=== PATIENT | female | born 1935 | race Caucasian/White ===

== ENCOUNTER 2016-11-06 05:57 | Day surgery (SDC) | payer MEDICARE, OTHER ==
[~2016-11-06 05:57] MED LIST: CEFAZOLIN SODIUM 1 GM in NORMAL SALINE MINI-BAG+ 100 ML IV ONE
[2016-11-06 06:24] VITALS: BP 161/91; PULSE 98; RESP 18; TEMP 97.5; O2SAT 93
[2016-11-06] MEDS ORDERED: MORPHINE SULFATE/PF 10 MG/10 ML VIAL ONE (06:51)
[2016-11-06] MEDS ORDERED: BACITRACIN 50,000 UNITS VIAL IM ONE (06:51)
[2016-11-06] MEDS ORDERED: KETOROLAC TROMETHAMINE 30 MG/ML VIAL ONE (06:51)
[2016-11-06] MEDS ORDERED: BUPIVACAINE HCL/PF 0.75% 10 ML VIAL ONE (07:02)
[2016-11-06] MEDS ORDERED: BUPIVACAINE/EPI 0.25% 1 VIAL VIAL ONE (07:04)
[2016-11-06] MEDS ORDERED: NORMAL SALINE FLUSH 30 ML ONE (07:04)
[2016-11-06] MEDS ORDERED: ROPIVACAINE HCL 0.5% 30 ML ONE (07:09)
[2016-11-06] MEDS ORDERED: TRANEXAMIC ACID 1,000 MG in NORMAL SALINE 100 ML IV SCH (09:00)
--- NOTE | 2016-11-12 18:01 | PREOPERATIVE H&P ---
History of Present Illness (Howard Horowitz DO; 10/31/2016 11:24 AM) The patient is a 80 year old female.Patient presents complaining of RIGHT shoulder pain and diminished range of motion and function. She has a history of a right shoulder arthroscopy back in 2013 for a rotator cuff repair, however the quality of her bone was poor which likely wouldn't on to failure of the anchors for the rotator cuff repair. She has a history of RIGHT shoulder osteoarthritis. Problem List/Past Medical (Howard Horowitz DO; 10/31/2016 11:24 AM) Cataract, nuclear sclerotic, both eyes (H25.13) Developing cataracts OU. 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 Byrnes, Dr. 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) GERD (gastroesophageal reflux disease) (K21.9) Rosacea (L71.9) Radiculopathy of leg (M54.10) Left Greater trochanteric bursitis of left hip (M70.62) Grief reaction (F43.20) Hypothyroidism (E03.9)1995 Overactive bladder (596.51) (N32.81)1998 Diverticulosis (K57.90)1999 Colon polyps (K63.5)1999 2011, Dr Robert Hyperlipidemia (E78.5)2007 Diet Controlled DM type 2 (diabetes mellitus, type 2) (E11.9)2007 Gastritis (K29.70)2011 Allergies (Jessie Espana RN; 10/31/2016 10:35 AM) Sulfa Family History (Jessie Espana RN; 10/31/2016 10:35 AM) No Significant Family Ocular History Son 2 @ 52 of Cancer of Pleural Cavity Son 1 CVA Mother @ 72 of Restrictive Lung Disease, DM, Esophageal Cancer, History of glaucoma. Paternal Cousins DM Father @ 67 of Cholelithiasis Maternal Uncles DM Maternal Aunts DM Social History (Howard Horowitz DO; 10/31/2016 11:24 AM) Alcohol Use Drinks Socially. Tobacco Use Former smoker. quit 1980 <10pack year Sunblock Used Marital status (Celso Casper) Advance Planning Full Code 09/2013, Medical POA 08/2012, Living Will 10/2010 Number of Children 2 Smoke Detectors Present Seat Belt Worn Vehicle Driving Yes. Occupation Retired, [employer] Medication History (Jessie Espana, RN; 10/31/2016 10:34 AM) Synthroid (125MCG Tablet, 1 Oral daily, Taken starting 09/01/2016) Active. Tolterodine Tartrate ER (4MG Capsule ER 24HR, 1 Oral daily, Taken starting 05/2016) Active. Glucophage (1000MG Tablet, 1 Oral BID, Taken starting 09/01/2016) Active. Lisinopril (5MG Tablet, 1 Oral daily, Taken starting 09/01/2016) Active. GlyBURIDE (2.5MG Tablet, 2 Oral BID, Taken starting 09/11/2016) Active. Omeprazole (20MG Capsule DR, 1 Oral daily, Taken starting 06/03/2016) Active. Doxycycline Monohydrate (100MG Capsule, 1 Oral daily (as needed), Taken starting 11/05/2013) Active. Aleve (220MG Capsule, 1 cap Oral two times daily) Active. (current frequency unknown) Aspirin (81MG Tablet, one tablet Oral daily) Active. Glucosamine (1 (one) Oral two times daily) Specific dose unknown - Active. Multiple Vitamin (Oral) Specific dose unknown - Active. Calcium 600 (1500 (600 Ca)MG Tablet, 1 tab Oral daily) Active. MetFORMIN & Diet Manage Prod (500MG Misc, Oral daily) Active. Medications Reconciled Past Surgical History (Howard Horowitz DO; 10/31/2016 11:24 AM) Appendectomy T&A ISELA Still has ovaries Cholecystectomy Rotator Cuff Repair Right-10/21/[id number] Singh Back [id number] Lumbar L3-S1, Lumbar Spinal Stenosis, Dr. Byrnes Health Maintenance History (Howard Horowitz DO; 10/31/2016 11:24 AM) Stress ECHO Patient Declines Pap Smear No Longer Indicated Colonoscopy 2011, No Repeat Indicated DEXA 2014, No Repeat Indicated Mammogram Annual [facility]ist Dr[facility] Dr. Mariano SOW 2011 Other Problems (Howard Horowitz DO; 10/31/2016 11:24 AM) Health education/counseling (Z71.89) Abdominal bloating (R14.0) Review of Systems (Howard Seniorginger BERRIOS; 10/31/2016 11:24 AM) General Not Present- Chills and Fever. Skin Not Present- Erythema, Skin Color Changes and Skin Problems. HEENT Not Present- Sleep Apnea. Neck Not Present- Neck Pain. Respiratory Not Present- Cough and Shortness of Breath. Cardiovascular Not Present- Chest Pain, Difficulty Breathing On Exertion, Fainting and Leg Pain and/or Swelling. Gastrointestinal Not Present- Abdominal Pain, Nausea and Vomiting. Female Genitourinary Not Present- Painful Urination. Musculoskeletal Not Present- Decreased Range of Motion, Joint Pain, Joint Stiffness, Joint Swelling, Muscle Pain and Muscle Weakness. Neurological Not Present- Dizziness, Focal Neurological Symptoms, Numbness in extremities, Trouble walking and Weakness. Psychiatric Not Present- Anorexia, Anxiety and Depression. Endocrine Not Present- Weight Loss. Hematology Not Present- Bleeding Problems, DVT and Easy Bruising. Vitals (Jessie Espana RN; 10/31/2016 10:32 AM) 10/31/2016 10:30 AM Weight: 177 lb Weight was reported by patient. Temp.: 98.2F Pulse: 103 (Regular) Resp.: 16 (Unlabored) BP: 162/83 (Sitting, Left Arm, Standard) Physical Exam (Howard Horowitz ; 10/31/2016 11:26 AM) The physical exam findings are as follows: Note:Physical examination of the right shoulder demonstrates forward flexion to 80 actively and 120 passively. There is palpable crepitance. Normal range of motion and strength of the elbow and wrist. Normal sensation and adequate perfusion. 5/5 strength with internal and external rotation. Plain film x-rays demonstrate severe arthritic changes of the glenohumeral joint with joint space narrowing, subchondral cirrhosis and osteophyte formation. Assessment & Plan (Howardtatyana SeniorLor DO; 10/31/2016 11:27 AM) Primary osteoarthritis of right shoulder (M19.011) Impression: The patient has had physical therapy, intra-articular steroid injections, activity modifications and oral analgesia without any significant improvement of her symptoms. After educating the patient regarding treatment options with their associated risks and benefits, the patient elected to proceed with surgical treatment of the injury/pathology with RIGHT REVERSE TOTAL SHOULDER ARTHROPLASTY. The risks and benefits of the specific procedure were explained and all questions and concerns were addressed and answered. Post operative rehabilitation requirements and expectations for optimal outcome were reviewed and the patient confirmed understanding these and committed to compliance. All questions answered. The patient will be optimized medically by consultation with their primary care physician prior to their procedure. Signed by Howard Horowitz DO (10/31/2016 11:28 AM) There are no interval changes. Signed Howard Horowitz DO 11/06/16 [email or web address]
== END 2016-11-06 07:20 | disposition home or self-care (01) ==
LOC: SDS 05:57
PROVIDERS: ATTEND Orthopaedic Surgery
DX: M19.011 Primary osteoarthritis, right shoulder (principal); E78.5 Hyperlipidemia, unspecified; E11.9 Type 2 diabetes mellitus without complications; I10 Essential (primary) hypertension; K21.9 Gastro-esophageal reflux disease without esophagitis; M15.9 Polyosteoarthritis, unspecified; M51.36 Other intervertebral disc degeneration, lumbar region; Z79.899 Other long term (current) drug therapy
CPT/HCPCS: J0171; J1885; J2795